=== PATIENT | male | born 1955 | race Caucasian/White ===

== ENCOUNTER 2018-11-01 13:07 | Outpatient (RCR) | payer BC | END 2019-01-30 | disposition home or self-care (01) | LOC: PULM 13:07 | PROVIDERS: ATTEND Internal Medicine Critical Care Medicine | DX: G47.33 Obstructive sleep apnea (adult) (pediatric) (principal); J45.909 Unspecified asthma, uncomplicated ==

== ENCOUNTER → 2018-12-14 | Outpatient (CLI) | payer BC ==
[~2018-12-14] MED LIST: HOLD METFORMIN - RECEIVED CONTRAST 20 ML VIAL IV SCH; IOHEXOL 350 MG/ML 150 ML (OMNIPAQUE 350) VIAL IV ONE; NS 100 ML (IVPB) BAG IV ONE
[2018-12-14 11:32] LABS: BASOPHILS % (AUTO) 1 % (0-10); EOSINOPHILS # (AUTO) 0.1 10^3/uL (0.0-0.3); EOSINOPHILS % (AUTO) 2 % (0-10); HEMATOCRIT 57 % (40-54); LYMPHOCYTES # (AUTO) 0.7 X 10^3 (1.0-4.0); LYMPHOCYTES % (AUTO) 12 % (12-44); MEAN CORPUSCULAR HEMOGLOBIN 21 PG (25-34); MEAN CORPUSCULAR HGB CONC 28 G/DL (32-36); MEAN CORPUSCULAR VOLUME 75 FL (80-99); MONOCYTES # (AUTO) 0.6 X 10^3 (0.0-1.0); MONOCYTES % (AUTO) 9 % (0-12); NEUTROPHILS # (AUTO) 4.7 X 10^3 (1.8-7.8); NEUTROPHILS % (AUTO) 77 % (42-75); PLATELET COUNT 162 10^3/uL (130-400); RED CELL DISTRIBUTION WIDTH 24.5 % (10.0-14.5); WHITE BLOOD COUNT 6.2 10^3/uL (4.3-11.0)
[2018-12-14 12:00] LABS: ALANINE AMINOTRANSFERASE 46 U/L (0-55); ALKALINE PHOSPHATASE 66 U/L (40-136); BILIRUBIN,TOTAL 0.8 MG/DL (0.1-1.0); BUN/CREATININE RATIO 19; CARBON DIOXIDE 36 MMOL/L (21-32); CHLORIDE 93 MMOL/L (98-107); CREATININE SERUM 1.08 MG/DL (0.60-1.30); GFR ESTIMATED > 60; GLUCOSE 152 MG/DL (70-105); POTASSIUM 4.1 MMOL/L (3.6-5.0); SODIUM 140 MMOL/L (135-145); TOTAL PROTEIN 6.9 GM/DL (6.4-8.2)
--- NOTE | 2018-12-14 12:46 | Diagnostic Imaging Report ---
PROCEDURE: US Venous Lower Ext [place]. TECHNIQUE: Multiple real-time grayscale images were obtained over the lower extremities in various projections, bilaterally. Additional duplex Doppler and color Doppler images were also obtained. INDICATION: Shortness of breath. FINDINGS: In the right leg, the common femoral and superficial femoral veins have good color filling and compressibility. The right popliteal vein has some diminished compressibility. No acute thrombus seen. Left leg has normal phasic and augmented flow as well as normal compressibility and color filling. IMPRESSION: There is some stiffness of the right popliteal vein that could be from old thrombophlebitis. There is no evidence of acute DVT. Dictated by: Dictated on workstation # [id number]
--- NOTE | 2018-12-14 13:19 | Diagnostic Imaging Report ---
PROCEDURE: CT angiography of the chest with contrast. TECHNIQUE: Multiple contiguous axial images were obtained through the chest after uneventful bolus administration of intravenous contrast. 2D reconstructed CTA MIP acquisitions were also performed. Auto Exposure Controls were utilized during the CT exam to meet ALARA standards for radiation dose reduction. INDICATION: Shortness of air. No prior studies are available for comparison. Evaluation of the pulmonary arterial system is without thromboembolism. No filling defects are seen within central, lobar or segmental branches. The thoracic aorta is of normal caliber. No dissection is seen. No pericardial or pleural fluid is identified. Parenchymal evaluation does show some subsegmental atelectasis in the right upper lobe as well as the lingula and right lower lobe. No mass is seen. There are some calcified granulomas in the left upper lobe. Upper abdomen demonstrates low-density throughout the liver consistent with hepatic steatosis. IMPRESSION: 1. No evidence of pulmonary embolism or thoracic aortic dissection. 2. Bilateral regions of subsegmental atelectasis. Dictated by: Dictated on workstation # [id number]
[2018-12-14 13:46] LABS: ABG BASE EXCESS 13.6 MMOL/L (-2.5-2.5); ABG OXYGEN SATURATION 86 % (94-100); ABG PCO2 65 MMHG (35-45); ABG PO2 56 MMHG (79-93); ABG TCO2 41.2 MMOL/L (21.0-31.0); ALLENS TEST YES-POS; INSPIRED O2 ROOM AIR; PATIENT TEMP 97.8; VENTILATOR NO
== END ==
LOC: RAD 11:09
PROVIDERS: ATTEND Nurse Practitioner Family
DX: J30.9 Allergic rhinitis, unspecified (principal); I87.8 Other specified disorders of veins; J98.11 Atelectasis; G47.33 Obstructive sleep apnea (adult) (pediatric); J98.4 Other disorders of lung; M79.89 Other specified soft tissue disorders; Z86.718 Personal history of other venous thrombosis and embolism
CPT/HCPCS: 36415; 36600; 71275; 80053; 82805; 83880; 85025; 93970

== ENCOUNTER → 2019-01-31 | Outpatient (CLI) | payer BC ==
[~2019-01-31] MED LIST changes: -HOLD METFORMIN - RECEIVED CONTRAST 20 ML VIAL IV SCH; -IOHEXOL 350 MG/ML 150 ML (OMNIPAQUE 350) VIAL IV ONE; -NS 100 ML (IVPB) BAG IV ONE; +RT-ALBUTEROL SULF 2.5 MG/3 ML PRE-MIX VIAL INH ONE
== END ==
LOC: RT 09:37
PROVIDERS: ATTEND Nurse Practitioner Family
DX: J30.9 Allergic rhinitis, unspecified (principal); G47.33 Obstructive sleep apnea (adult) (pediatric); J98.4 Other disorders of lung; M79.89 Other specified soft tissue disorders; Z86.718 Personal history of other venous thrombosis and embolism
CPT/HCPCS: 94060; 94726; 94729